=== PATIENT | female | born 1970 | race Caucasian/White ===

== ENCOUNTER 2017-01-21 16:12 | Emergency (ER) | payer MEDICAID ==
[~2017-01-21] VITALS: Ht 162.6 cm; Wt 58.7 kg
[2017-01-21] MEDS ORDERED: SODIUM CHLORIDE 0.9% 1,000 ML IV ONE (16:49)
[2017-01-21] MEDS ORDERED: DIPHENHYDRAMINE 50 MG/ML, 1ML IVPush ONE (17:00)
[2017-01-21] MEDS ORDERED: SODIUM CHLORIDE FLUSH 10ML SYR IVF ONE (17:00)
[2017-01-21] MEDS ORDERED: KETOROLAC 30 MG/1 ML IVPush ONE (17:00)
[2017-01-21] MEDS ORDERED: METOCLOPRAMIDE 5 MG/ML, 2ML IVPush ONE (17:00)
[2017-01-21] MEDS ORDERED: SODIUM CHLORIDE 0.9% 1,000ML IVBOLUS ONE (17:00)
[2017-01-21] MEDS ORDERED: KETOROLAC 30 MG/1 ML ONE (17:10)
[2017-01-21] MEDS ORDERED: DIPHENHYDRAMINE 50 MG/ML, 1ML ONE (17:10)
[2017-01-21] MEDS ORDERED: METOCLOPRAMIDE 5 MG/ML, 2ML ONE (17:10)
[2017-01-21 17:28] LABS: BLOOD UREA NITROGEN 13 mg/dL (7-18)
[2017-01-21] MEDS ORDERED: CEFTRIAXONE 1,000 MG in SODIUM CHLORIDE 0.9% 50 ML IVPB ONE (18:30)
[2017-01-21 18:44] VITALS: BP 131/74
== END 2017-01-21 19:04 | disposition home or self-care (01) ==
LOC: ED 17:34
DX: R51 Headache (principal); J01.00 Acute maxillary sinusitis, unspecified
CPT/HCPCS: 36415; 70450; 80048; 82040; 85025; 85651; 96365; 96375; 99285; J0696; J1200; J1885; J2765; J7030

== ENCOUNTER 2017-12-31 07:50 | Emergency (ER) | payer SELFPAY ==
[~2017-12-31] VITALS: Ht 162.6 cm; Wt 63.0 kg
[2017-12-31 08:59] LABS: MEAN CORPUSCULAR HEMOGLOBIN 27.1 pg (27.0-34.8); MEAN CORPUSCULAR HGB CONC 32.6 g/dL (32.4-35.8); MEAN CORPUSCULAR VOLUME 82.9 fL (80-100); MEAN PLATELET VOLUME 7.9 fL (7.4-10.4); PLATELET COUNT 303 x10^3/uL (130-400); RED BLOOD COUNT 4.97 x10^6/uL (3.82-5.3); RED CELL DISTRIBUTION WIDTH 14.5 % (9.6-15.2)
[2017-12-31] MEDS ORDERED: KETOROLAC 30 MG/1 ML IM ONE (09:00)
[2017-12-31] MEDS ORDERED: ONDANSETRON ODT 4 MG PO ONE (09:00)
[2017-12-31 09:03] LABS: CULTURE INDICATED? YES; MICROSCOPIC INDICATED
[2017-12-31 09:11] LABS: ALBUMIN 2.8 g/dL (3.4-5.0); ANION GAP 8 mmol/L (5-15); CALCIUM 8.3 mg/dL (8.5-10.1); CHLORIDE 102 mmol/L (98-107)
[2017-12-31] MEDS ORDERED: ONDANSETRON ODT 4 MG ONE (09:27)
[2017-12-31] MEDS ORDERED: KETOROLAC 30 MG/1 ML ONE (09:27)
[2017-12-31 09:35] LABS: MD YES
[2017-12-31 09:36] LABS: <PLATELET ESTIMATE> ADEQUATE; <PLT MORPHOLOGY> NORMAL PLT MORPH; <RBC MORPHOLOGY> NORMAL; BAND#(MANUAL) 0.17 x10^3/uL; BANDS%(MANUAL) 1 % (0-7); BASOS#(MANUAL) 0.17 x10^3/uL (0-0.1); BASOS% (MANUAL) 1 % (0-1); EOS#(MANUAL) 0.34 x10^3/uL (0.0-0.4); EOS% (MANUAL) 2 % (1-7); LYMPH#(MANUAL) 2.21 x10^3/uL (1-3.4); LYMPHS% (MANUAL) 13 % (22-44); MONOS#(MANUAL) 1.36 x10^3/uL (0.3-2.7); MONOS% (MANUAL) 8 % (2-9); SEG#(MANUAL) 12.75 x10^3/uL (1.8-6.8); SEGS% (MANUAL) 75 % (42-75)
[2017-12-31] MEDS ORDERED: CEFTRIAXONE 1,000 MG in SODIUM CHLORIDE 0.9% 50 ML IV ONE (10:30)
[2017-12-31] MEDS ORDERED: CEFTRIAXONE PMX 1GM/50ML 50 ML ONE (10:37)
[2017-12-31] MEDS ORDERED: CEFTRIAXONE 1,000 MG IM ONE (11:00)
[2017-12-31 11:38] VITALS: BP 109/46
== END 2017-12-31 11:46 | disposition left against medical advice (07) ==
LOC: ED 09:15
DX: N13.2 Hydronephrosis with renal and ureteral calculous obstruction (principal); G43.909 Migraine, unspecified, not intractable, without status migrainosus; F17.210 Nicotine dependence, cigarettes, uncomplicated; Z87.442 Personal history of urinary calculi
CPT/HCPCS: 36415; 74176; 80048; 81001; 82040; 85025; 87040; 87077; 87086; 96372; 99285; J0696; J1885; Q0162; 87186

== ENCOUNTER 2018-06-10 16:30 | Inpatient (IN) | payer MEDICAID ==
[~2018-06-10] VITALS: Ht 162.6 cm; Wt 63.2 kg
[2018-06-10 17:18] LABS: BASOPHILS # (AUTO) 0.04 x10^3/uL (0-0.1); BASOPHILS % (AUTO) 0 % (0-1); EOSINOPHILS # (AUTO) 1.46 x10^3/uL (0-0.4); EOSINOPHILS % (AUTO) 11 % (1-7); LYMPHOCYTES # (AUTO) 2.37 x10^3/uL (1-3.4); LYMPHOCYTES % (AUTO) 17 % (22-44); MD NO; MEAN CORPUSCULAR HEMOGLOBIN 27.8 pg (27.0-34.8); MEAN CORPUSCULAR HGB CONC 33.5 g/dL (32.4-35.8); MEAN CORPUSCULAR VOLUME 82.9 fL (80-100); MEAN PLATELET VOLUME 7.9 fL (7.4-10.4); MONOCYTES # (AUTO) 0.95 x10^3/uL (0.2-0.8); MONOCYTES % (AUTO) 7 % (2-9); NEUTROPHILS # (AUTO) 8.84 x10^3/uL (1.8-6.8); NEUTROPHILS % (AUTO) 65 % (42-75); PLATELET COUNT 409 x10^3/uL (130-400); RED BLOOD COUNT 5.34 x10^6/uL (3.82-5.3); RED CELL DISTRIBUTION WIDTH 15.7 % (9.6-15.2)
[2018-06-10 17:25] LABS: ALANINE AMINOTRANSFERASE 17 U/L (12-78); ALBUMIN 3.2 g/dL (3.4-5.0); ANION GAP 9 mmol/L (5-15); CALCIUM 8.6 mg/dL (8.5-10.1); CHLORIDE 109 mmol/L (98-107); CREATININE 0.82 mg/dL (0.55-1.02)
[2018-06-10 17:27] LABS: ALKALINE PHOSPHATASE 74 U/L (45-117); BILIRUBIN,TOTAL 0.2 mg/dL (0.2-1.0); TOTAL PROTEIN 7.2 g/dL (6.4-8.2)
[2018-06-10] MEDS ORDERED: VANCOMYCIN PER PHARMACY MC ONE (18:00)
[2018-06-10] MEDS ORDERED: PIPERACILLIN/TAZO/PMX 3.375GM 50 ML IVPB ONE (18:00)
[2018-06-10] MEDS ORDERED: PHARMACOKINETIC CONSULTATION MC ONE ×2 (18:00→22:00)
[2018-06-10] MEDS ORDERED: VANCOMYCIN 1,300 MG in SODIUM CHLORIDE 0.9% 250 ML IV ONE (18:00)
[2018-06-10] MEDS ORDERED: PIPERACILLIN/TAZO/PMX 3.375GM 50 ML ONE (18:20)
[2018-06-10] MEDS ORDERED: VANCOMYCIN PER PHARMACY MC PRN (20:00)
[2018-06-10] MEDS ORDERED: SODIUM CHLORIDE FLUSH 10ML SYR IVF PRN (20:00)
[2018-06-10] MEDS ORDERED: DIPHENHYDRAMINE/ZINC CRM 2%, 30GM TP PRN (20:00)
[2018-06-10] MEDS ORDERED: ACETAMINOPHEN 325 MG TABLET PO PRN (20:30)
[2018-06-10] MEDS ORDERED: BISACODYL 10 MG SUPP PR PRN (20:30)
[2018-06-10] MEDS ORDERED: POLYETHYLENE GLYCOL 17 GM PACKET PO PRN (20:30)
[2018-06-10] MEDS ORDERED: POTASSIUM CHLORIDE 20 MEQ TAB.ER.PRT PO ONE (20:30)
[2018-06-10] MEDS: HEPARIN 5,000 UNITS/ML, 1ML SQ SCH (20:30)
[2018-06-10] MEDS ORDERED: methylPREDNISolone SOD SUCC 125 MG/2 ML IVPush ONE (20:30)
[2018-06-10] MEDS ORDERED: ONDANSETRON ODT 4 MG PO PRN (20:30)
[2018-06-10] MEDS: SODIUM CHLORIDE FLUSH 10ML SYR IVF SCH (21:00)
[2018-06-10] MEDS: FAMOTIDINE 20 MG TABLET PO SCH (21:56)
[2018-06-10] MEDS ORDERED: PHARMACOKINETIC MONITORING MC PRN (22:00)
[2018-06-10] MEDS: AQUAPHOR NATURAL HEALING OINT 50GM TP SCH (22:08)
[2018-06-11] MEDS: AMPICILLIN/SULBACTAM 3 GM in SODIUM CHLORIDE 0.9% 100 ML IV SCH ×5 (00:07→23:42)
[2018-06-11] MEDS: HEPARIN 5,000 UNITS/ML, 1ML SQ SCH ×3 (02:05→19:25)
[2018-06-11 02:56] VITALS: BP 128/82
[2018-06-11 04:51] LABS: MEAN CORPUSCULAR HEMOGLOBIN 27.4 pg (27.0-34.8); MEAN CORPUSCULAR HGB CONC 33.1 g/dL (32.4-35.8); MEAN PLATELET VOLUME 8.3 fL (7.4-10.4); PLATELET COUNT 381 x10^3/uL (130-400); RED BLOOD COUNT 4.83 x10^6/uL (3.82-5.3); RED CELL DISTRIBUTION WIDTH 15.4 % (9.6-15.2)
[2018-06-11 05:00] LABS: ALANINE AMINOTRANSFERASE 14 U/L (12-78); ALBUMIN 2.7 g/dL (3.4-5.0); ANION GAP 6 mmol/L (5-15); CALCIUM 8.4 mg/dL (8.5-10.1); CHLORIDE 112 mmol/L (98-107); CREATININE 0.82 mg/dL (0.55-1.02)
[2018-06-11 05:02] LABS: ALKALINE PHOSPHATASE 65 U/L (45-117); BILIRUBIN,TOTAL 0.2 mg/dL (0.2-1.0); TOTAL PROTEIN 6.3 g/dL (6.4-8.2)
[2018-06-11 05:55] LABS: MD YES
[2018-06-11 05:57] LABS: LYMPH#(MANUAL) 0.67 x10^3/uL (1-3.4); LYMPHS% (MANUAL) 6 % (22-44); SEG#(MANUAL) 10.53 x10^3/uL (1.8-6.8); SEGS% (MANUAL) 94 % (42-75)
[2018-06-11 05:58] LABS: <RBC MORPHOLOGY> NORMAL
[2018-06-11 05:59] LABS: <PLATELET ESTIMATE> ADEQUATE; <PLT MORPHOLOGY> NORMAL PLT MORPH
[2018-06-11 07:20] VITALS: BP 128/74
[2018-06-11] MEDS: AQUAPHOR NATURAL HEALING OINT 50GM TP SCH ×2 (08:56→20:19)
[2018-06-11] MEDS: FAMOTIDINE 20 MG TABLET PO SCH (08:56)
[2018-06-11] MEDS: SODIUM CHLORIDE FLUSH 10ML SYR IVF SCH ×2 (08:56→20:20)
[2018-06-11] MEDS ORDERED: SENNA/DOCUSATE TABLET PO SCH (09:00)
[2018-06-11] MEDS: VANCOMYCIN PMX 1GM/200ML 200 ML IV SCH ×2 (10:12→22:19)
[2018-06-11] MEDS: FAMOTIDINE 20 MG/2 ML IVPush SCH ×2 (14:23→20:19)
[2018-06-11 15:00] VITALS: BP 139/86
[2018-06-11] MEDS: methylPREDNISolone SOD SUCC 40 MG/ML IV SCH (16:24)
[2018-06-11] MEDS: MINERA CRM, 60GM TP SCH ×2 (17:20→20:20)
[2018-06-11 19:58] VITALS: BP 153/88
[2018-06-12] MEDS: HEPARIN 5,000 UNITS/ML, 1ML SQ SCH (02:29)
[2018-06-12 03:17] VITALS: BP 129/87
[2018-06-12] MEDS: methylPREDNISolone SOD SUCC 40 MG/ML IV SCH (05:37)
[2018-06-12] MEDS: AMPICILLIN/SULBACTAM 3 GM in SODIUM CHLORIDE 0.9% 100 ML IV SCH (05:37)
[2018-06-12] MEDS: MINERA CRM, 60GM TP SCH (05:37)
== END 2018-06-12 09:32 | disposition left against medical advice (07) | DRG 603 ==
LOC: ED 20:03 → EDIP 20:05 → 3NE 21:19
PROVIDERS: ADMIT Hospitalist; ATTEND Hospitalist
PROC: 02HV33Z Insertion of Infusion Device into Superior Vena Cava, Percutaneous Approach (ICD-10-PCS; principal; 2018-06-10)
PROC: B548ZZA Ultrasonography of Superior Vena Cava, Guidance (ICD-10-PCS; 2018-06-10)
DX: L03.113 Cellulitis of right upper limb (principal); L03.211 Cellulitis of face; E44.1 Mild protein-calorie malnutrition; E87.6 Hypokalemia; F17.210 Nicotine dependence, cigarettes, uncomplicated; L30.9 Dermatitis, unspecified; N20.0 Calculus of kidney; Z87.442 Personal history of urinary calculi; Z98.51 Tubal ligation status; Z90.49 Acquired absence of other specified parts of digestive tract; R79.89 Other specified abnormal findings of blood chemistry; Z68.23 Body mass index [BMI] 23.0-23.9, adult
CPT/HCPCS: 36415; 36569; 76937; 77001; 80053; 83605; 85025; 87040; 96365; 96366; 96375; G0378; J0295; J2543; J3370; C1751; J2920; J2930; J7050; S0028

== ENCOUNTER 2021-05-10 01:47 | Emergency (ER) | payer MEDICAID ==
[~2021-05-10] VITALS: Ht 162.6 cm; Wt 60.0 kg
--- NOTE | 2021-05-10 01:53 | NUR ---
EKG DONE IN TRIAGE.
[2021-05-10] MEDS ORDERED: KETOROLAC 30 MG/1 ML IVPush ONE (02:00)
[2021-05-10] MEDS ORDERED: SODIUM CHLORIDE FLUSH 10ML SYR IVF ONE (02:00)
[2021-05-10] MEDS ORDERED: ONDANSETRON 2MG/ML, 2ML IVPush ONE (02:00)
[2021-05-10] MEDS ORDERED: HYDROmorphone 1 MG/ML, 1ML INJ IV ONE (02:00)
[2021-05-10] MEDS ORDERED: KETOROLAC 30 MG/1 ML ONE (02:08)
[2021-05-10] MEDS ORDERED: HYDROmorphone 2 MG/ML, 1ML ONE (02:08)
[2021-05-10] MEDS ORDERED: ONDANSETRON 2MG/ML, 2ML ONE (02:08)
[2021-05-10 02:34] LABS: BASOPHILS % (AUTO) 1 % (0-1); EOSINOPHILS % (AUTO) 3 % (1-7); LYMPHOCYTES % (AUTO) 16 % (22-44); MEAN CORPUSCULAR HEMOGLOBIN 27.3 pg (27.0-34.8); MEAN CORPUSCULAR HGB CONC 33.2 g/dL (32.4-35.8); MEAN PLATELET VOLUME 7.2 fL (7.4-10.4); MONOCYTES % (AUTO) 10 % (2-9); NEUTROPHILS % (AUTO) 71 % (42-75); PLATELET COUNT 416 x10^3/uL (130-400); RED BLOOD COUNT 4.92 x10^6/uL (3.82-5.3); RED CELL DISTRIBUTION WIDTH 14.4 % (9.6-15.2)
[2021-05-10 02:42] LABS: ALANINE AMINOTRANSFERASE 22 U/L (12-78); ALBUMIN 2.7 g/dL (3.4-5.0); ANION GAP 11 mmol/L (5-15); CALCIUM 8.4 mg/dL (8.5-10.1); CHLORIDE 105 mmol/L (98-107); CREATININE 0.91 mg/dL (0.55-1.02)
[2021-05-10 02:47] LABS: ALKALINE PHOSPHATASE 74 U/L (45-117); BILIRUBIN,TOTAL 0.2 mg/dL (0.2-1.0); TROPONIN I < 0.015 ng/mL (0.000-0.045)
[2021-05-10] MEDS ORDERED: OMNIPAQUE 350 MG/ML, 100ML BOTTLE ONE (04:52)
[2021-05-10 05:55] VITALS: BP 118/58
== END 2021-05-10 06:33 | disposition home or self-care (01) ==
LOC: ED 06:00
DX: R07.89 Other chest pain (principal); G43.909 Migraine, unspecified, not intractable, without status migrainosus; F17.210 Nicotine dependence, cigarettes, uncomplicated
CPT/HCPCS: 36415; 71045; 71275; 80053; 84484; 85025; 85379; 93005; 96374; 96375; 99285; 99406; J1170; J1885; J2405; Q9967

== ENCOUNTER 2021-05-10 22:49 | Emergency (ER) | payer MEDICAID ==
[~2021-05-10] VITALS: Ht 162.6 cm; Wt 60.0 kg
--- NOTE | 2021-05-10 22:57 | NUR ---
EKG DONE IN TRIAGE.
--- NOTE | 2021-05-10 23:44 | NUR ---
PATIENT AMBULATED WITH STEADY GAIT TO ROOM 21, PATIENT C/O OF EAR PAIN, WAS SEEN YESTERDAY WITH A NORMAL WORK UP, PATIENT REPORTS THAT SHE DOESN'T HAVE A PCP. PATIENT REPORTS THAT PAIN CAME BACK AFTER MEDICATIONS WORE OFF AND "SOMETHING MUST BE WRONG".
[2021-05-11] MEDS ORDERED: HYDROcodone/APAP 5/325 TABLET PO ONE (00:30)
[2021-05-11] MEDS ORDERED: HYDROcodone/APAP 5/325 TABLET ONE (00:42)
[2021-05-11 01:37] VITALS: BP 155/87
== END 2021-05-11 01:39 | disposition home or self-care (01) ==
LOC: ED 05-11 01:26
DX: R07.89 Other chest pain (principal); R09.1 Pleurisy; G43.909 Migraine, unspecified, not intractable, without status migrainosus; F17.200 Nicotine dependence, unspecified, uncomplicated
CPT/HCPCS: 71045; 93005; 99283